=== PATIENT | female | born 1955 | race Caucasian/White ===

== ENCOUNTER 2024-08-31 08:35 | Outpatient (CLI) | payer MEDICAID ==
[~2024-08-31] VITALS: Ht 170.2 cm; Wt 86.2 kg
[2024-08-31] MEDS: albuterol 2.5 MG/3 ML nebule NEB ONE (09:29)
[2024-08-31 09:31] VITALS: PULSE 117; RESP 16; O2SAT 96
[2024-08-31 09:46] VITALS: PULSE 112; RESP 16
== END 2024-08-31 23:59 | disposition home or self-care (01) ==
LOC: RT 08:35
PROVIDERS: ATTEND Physician Assistant
DX: R06.00 Dyspnea, unspecified (principal)
CPT/HCPCS: 94060; 94760